=== PATIENT | female | born 1945 ===

== ENCOUNTER 2016-10-05 06:12 | Inpatient (IN) | payer MEDICARE, BC ==
--- NOTE | 2016-09-23 14:01 | HP ---
HISTORY AND PHYSICAL: DATE OF SURGERY/ADMISSION: 10/05/16 DATE OF OFFICE VISIT: 09/23/16 PROCEDURE: Left total knee replacement. CHIEF COMPLAINT: Left knee pain. HISTORY OF PRESENT ILLNESS: The patient is a very pleasant 71-year-old female who presents today for history and physical evaluation prior to undergoing her elected left total knee replacement. In brief, the patient has been suffering from left knee pain for several years and has tried conservative methods such as injections, bracing, modifying activities, but continues to have increasing pain. She elected to undergo a left total knee replacement by Dr. Campoverde on . PAST MEDICAL HISTORY: 1. Hypertension 2. Hypothyroidism. 3. Chronic kidney disease. 4. Anemia. 5. Hyperlipidemia. 6. Peripheral vascular disease, bilateral lower extremities. 7. Status post right femoral to popliteal bypass 2012. PAST SURGICAL HISTORY: 1. Right fem to popliteal bypass 2012. 2. Partial hysterectomy 1976. 3. Right foot surgery for osteoarthritis in 1991. MEDICATIONS: 1. Aspirin 81 mg p.o. daily. 2. Estradiol 0.05 mg/24 hours. 3. Levothyroxine 75 mcg 1 tablet by mouth daily. 4. Gabapentin 300 mg 1 tablet by mouth 3 times daily. 5. Hydrochlorothiazide 25 mg 1 tablet by mouth daily. 6. Coreg 12.5 mg 1 tablet by mouth twice daily. 7. Lipitor 10 mg 1 tablet by mouth q.h.s. ALLERGIES: LISINOPRIL. FAMILY MEDICAL HISTORY: Mother with dementia, passed from old age. Father with old age. Denies any heart trouble, diabetes or cancer. SOCIAL HISTORY: The patient is retired. Living with her in [place]. Denies any smoking history. Rare alcohol use. Exercises daily. REVIEW OF SYSTEMS: General: Denies fever, chills. No recent weight gain or loss. No difficulty with anesthesia. HEENT: Denies headaches, lightheadedness , or difficulty balance. Cardiovascular: Denies chest pain, palpitations or edema. Positive for hypertension. Pulmonary: Negative for shortness of breath , cough or asthma/COPD. GI: Negative for nausea, vomiting, constipation, diarrhea or GERD. : Negative for nocturia, urinary frequency, urgency. No history of UTIs or kidney problems. Musculoskeletal: Denies any other joint pains, other than left knee. Skin: No open wounds, sores or difficulty with wound healing. Neuro: Negative for paraesthesias and numbness. No history of seizures, stroke or epilepsy. Endocrine: Negative for diabetes. Positive for thyroid disease. Hematologic: Negative for easy bruising, anemia. Currently, the patient reports a positive history of DVT in the lower extremities. Infectious Disease: Negative for MRSA, hepatitis C or HIV. PHYSICAL EXAMINATION GENERAL: Well appearing, in no acute distress. Alert and oriented with appropriate mood and affect. Ambulating with cane. VITAL SIGNS: Height 60 inches, weight 127 pounds, pulse 57, blood pressure 184/ 69. Temperature 96.5, BMI 24.8. HEENT: Normocephalic, atraumatic. EOMI. CARDIO: Regular rate and rhythm. No murmurs, gallops or rubs. Normal S2 split. PULMONARY: Lungs clear to auscultation bilaterally. No crackles, rhonchi or wheezes. ABDOMEN: Soft, nontender, nondistended. Normal active bowel sounds. Negative CVA tenderness bilaterally. NEUROLOGIC: Alert and oriented x3. Cranial nerves grossly intact. Sensation intact to light touch in bilateral lower extremities. MUSCULOSKELETAL: Right knee with range of motion 3 to 110 degrees. No posterior tibial pulse palpated, +1 dorsalis pedis pulse. Left, 0 to 110 degrees. Knee mildly warm to palpation. Minimal joint effusion noted. Positive crepitus. +1 posterior tibial pulse. +1 dorsalis pedis pulse. IMAGING DATA: Studies left knee x-ray done at [facility] dated 08/25/16. IMPRESSION: This is a very pleasant 71-year-old female who presents today for history and physical examination. She is to undergo preoperative evaluation with Dr. Garrison in [place] next week. She will undergo her preadmission testing today. She would like to return home if at all possible postoperatively. Medications of oxycodone, Colace and Coumadin were sent to the patient's pharmacy in [place] in [place] for postoperative management with strict instructions not to take these prior to surgery, which the patient was in agreement with. She will follow up with Dr. Campoverde at [facility] approximately 3 to 4 weeks postoperatively. She had no other questions or concerns. ANGELA POSADA [id number]/[facility] #: [id number] MTDShira
[~2016-10-05 06:12] MED LIST: Buffered Lidocaine 0.9% SYRIN* 5 ML/SYR SYRINGE ONE; Famotidine IV* 10 MG/ML 2 ML (20 mg) IV ONE; Famotidine IV* 10 MG/ML 2 ML (20 mg) ONE; Gabapentin CAP(*) 300 MG ONE; Gabapentin CAP(*) 300 MG PO ONE; ceFAZolin 2 GM PREMIX(*) 2 GM/50 ML BAG IVPB ONE
[2016-10-05] MEDS: Buffered Lidocaine 0.9% SYRIN* 5 ML/SYR SYRINGE INTRADERM ONE ×2 (06:51→12:23)
[2016-10-05] MEDS ORDERED: Bupivacaine 0.25% W/EPI* 50 ML VIAL ONE (07:32)
[2016-10-05] MEDS ORDERED: fentaNYL* 50 MCG/ML 2 ML VIAL (100 MCG VIAL) ONE (07:35)
[2016-10-05] MEDS ORDERED: Midazolam* 1 MG/ML 5 ML VIAL (5 MG) ONE (07:36)
[2016-10-05] MEDS ORDERED: Morphine PF AMP (0.5MG/ML)* 5 MG/10 ML AMP ONE (07:36)
[2016-10-05] MEDS ORDERED: KETAMINE HCL* 50 MG/ML 10 ML VIAL ONE (07:59)
[2016-10-05] MEDS ORDERED: Dexamethasone IV* 4 MG/ML 1 ML (4 MG) ONE (08:05)
[2016-10-05] MEDS ORDERED: Ketorolac INJ* 30 MG/ML 1 ML VIAL ONE (08:05)
[2016-10-05] MEDS ORDERED: Ondansetron INJ* 2 MG/ML VIAL ONE (08:05)
[2016-10-05] MEDS ORDERED: Propofol* 10 MG/ML 20 ML BTL IV PUSH ONE (08:05)
[2016-10-05] MEDS ORDERED: oxyCODONE/Acetamin 5/325 MG* TAB PO PRN (08:49)
[2016-10-05] MEDS ORDERED: DiMENhydriNATE IV* 50 MG/ML VIAL IV PUSH PRN (08:49)
[2016-10-05] MEDS ORDERED: HYDROmorphone* 1 MG/ML 1 ML SYR IV PRN (08:49)
[2016-10-05] MEDS ORDERED: Gabapentin CAP(*) 100 MG PO ONE (08:51)
[2016-10-05] MEDS ORDERED: Nalbuphine* 20 MG/ML 1 ML VIAL IV PRN (08:52)
[2016-10-05] MEDS ORDERED: Ondansetron INJ* 2 MG/ML VIAL IV PRN (08:52)
[2016-10-05] MEDS ORDERED: Naloxone* 0.4 MG/ML 1 ML VIAL IV PRN (08:52)
[2016-10-05] MEDS ORDERED: oxyCODONE TAB* 5 MG TAB PO PRN ×3 (09:50→13:00)
[2016-10-05] MEDS ORDERED: Polyethylene Glycol 3350* 17 GM PACKET PO PRN (09:50)
[2016-10-05] MEDS ORDERED: Ondansetron TAB* 4 MG PO PRN (09:50)
[2016-10-05] MEDS ORDERED: Bisacodyl SUPP* 10 MG SUPP PR PRN (09:50)
[2016-10-05] MEDS ORDERED: diPHENhydraMINE IV* 50 MG/ML 1 ml VIAL (BENADRYL) IV PRN (09:50)
--- NOTE | 2016-10-05 10:35 | RAD ---
HISTORY: Status post left knee arthroplasty COMPARISONS: None VIEWS: 2, Frontal and lateral views of the left knee FINDINGS: BONE DENSITY: Normal. BONES: The patient is status post left knee arthroplasty. There is no hardware failure or osteolysis. JOINTS: The patient is status post left knee arthroplasty ALIGNMENT: There is no dislocation. SOFT TISSUES: There is postsurgical change to the soft tissue OTHER FINDINGS: None. IMPRESSION: STATUS POST LEFT KNEE ARTHROPLASTY
[2016-10-05] MEDS: Acetaminophen TAB* 325 MG PO SCH ×4 (11:31→21:53)
[2016-10-05] MEDS: D5W 1/2 NS 1000 ML BAG* 1,000 ML IV SCH ×2 (12:00→22:03)
[2016-10-05] MEDS: ceFAZolin VIAL(*) 1 GM in NS 0.9% 50 ML* 50 ML IVPB SCH ×2 (16:03→23:58)
[2016-10-05] MEDS ORDERED: Warfarin TAB(*) 4 MG PO ONE ×2 (17:00→21:00)
[2016-10-05] MEDS: Atorvastatin* 10 MG TAB PO SCH (21:54)
[2016-10-05] MEDS: Docusate CAP* 100 MG PO SCH (21:55)
[2016-10-05] MEDS: Magnesium Hydroxide LIQ* 30 ML UDC PO SCH (22:05)
[2016-10-05] MEDS: Gabapentin CAP(*) 300 MG PO SCH (22:06)
[2016-10-05] MEDS: Carvedilol TAB* 6.25 MG PO SCH (22:07)
[2016-10-06] MEDS: Acetaminophen TAB* 325 MG PO SCH ×2 (01:26→05:54)
--- NOTE | 2016-10-06 02:25 | OP ---
DATE OF OPERATION: 10/05/16 - ROOM #448 DATE OF : 41 SURGEON: Sandeep Campoverde MD TERRITORY SALES MANAGER: Kathy Kearns RPA ANESTHESIOLOGIST: Madison Brewer MD ANESTHESIA: Spinal and sedation. PRE-OP DIAGNOSIS: Osteoarthritis, left knee. POST-OP DIAGNOSIS: Osteoarthritis, left knee. OPERATIVE PROCEDURE: Left total knee arthroplasty. ESTIMATED BLOOD LOSS: Less than 20 cc. COMPLICATIONS: None. HARDWARE: Ilda Persona knee #5 femur, D tibial base plate, 11-mm polyethylene , 32 mm all polyethylene patellar button. SUMMARY: Ms. Lacy is a 71-year-old female who has been having continued troubles with left knee pain. She is [id number] on both medial and patellofemoral compartments and I discussed with her that a total knee arthroplasty should work well to decrease her pain and improve her function. Risks of surgery such as infection, scar formation, stiffness, DVT, pulmonary embolism, hardware failure, and continued pain were some of the risks discussed she did wish to proceed. She had been declared medically optimized prior to surgery. DESCRIPTION OF PROCEDURE: The patient was brought to the OR and spinal anesthesia was introduced. Barbour catheter was placed. Tourniquet was placed and used during the case. Total tourniquet time would be 50 minutes. Left knee was prepped and then draped. Kathy Kearns RPA, was present for the entirety of the case and was instrumental with positioning, retraction, placement of the components and closure. The case could not have been done with her. Left knee was prepped and then draped. Esmarch was used to exsanguinate the leg and the tourniquet was raised. Midline incision was made, centered about the patella, beginning just on the medial side of the tibial tubercle and carried upwards. Incision was carried down through the skin and subcutaneous tissues. Extensor mechanism was exposed and a sharp parapatellar arthrotomy was made. Soft tissues were sharply elevated from the medial side of the tibia and the fat pad was sharply excised. Patella measured 18 mm in thickness but some of this was due to wear and a nice cut was taken. This left 11 mm of patella with a nice smooth even surface. Attention was turned to the femur. Step drill was used to open the femoral canal. Intramedullary guide was placed. This was adjusted until it was perfectly parallel with the epicondyles and then the distal femoral cutting guide was pinned into place. Intramedullary guide was removed. Distal femoral cut was taken. Guide had been set at 5 degrees and 2 mm. It appeared a nice cut was obtained. Femur was sized and she sat just below 5. I thought though that the 5 would sit better and holes were drilled and a 5 block was placed. Superior drill hole was run and this came out nicely on the top side of the femur. Anterior and posterior femoral cuts followed by the chamfer cuts were all made. Attention was turned to the tibia. Step drill was used to open the tibial canal and the intramedullary guide was placed. Outrigger was assembled and adjusted until it appeared it would take 2 mm from the worn medial side. Cutting guide was pinned into place and the tibial cut was taken. Nice cut was obtained. A 10 spacer block was placed and she was just a little bit loose but her alignment appeared perfect. Proximal tibia was sized and a C appeared a little bit small and the D sat right to the edge. I thought the D would be better. D was then pinned into place and the proximal tibia was drilled and then punched. A #5 femur was placed on the femur and the box cut was finished. She was trialed with an 11 and came out nicely into full extension being perhaps a little bit tight and flexed easily past 135 degrees. Locked in full extension, she was stable with a little bit of flexion. She had a little bit of wobble but was not unstable. Patella tracking without the button was fine. Patella was sized and a 32 sat very nicely. Holes were drilled and trial was snapped into place. Patella tracked perfectly. Trial instrumentation was removed. The knee was copiously pulse lavaged. Cement was being prepared. Tibia followed by femur and patella were all cemented into place. Excess cement was removed and the cement was allowed to harden. She was again trialed with the 11 and had seemed to tighten up a little bit. An 11 polyethylene was called for and the knee was again searched for any loose pieces of cement. Knee was again copiously pulse lavaged and the polyethylene was then snapped into place. Knee was again copiously pulse lavaged and parapatellar arthrotomy was repaired using interrupted #1 Vicryl sutures. Tourniquet was let down and no significant bleeding was encountered. Knee was again pulse lavaged and the subcutaneous tissues reapproximated using 2-0 Vicryl. Skin was closed using scout. Sterile dressing was applied. The patient was then awakened, stable on transfer to the recovery room. [id number]/[facility] #: [id number] MTDShira
[2016-10-06 04:57] LABS: Hematocrit 27 % (35-47); Hemoglobin 9.2 g/dl (12.0-16.0)
[2016-10-06 05:13] LABS: BUN/Creatinine Ratio 24.6 (8-20); Calcium 8.6 mg/dL (8.6-10.3); EGFR African American 57.7 (>60); EGFR Non-African American 44.9 (>60); Potassium 4.2 mmol/L (3.5-5.0)
[2016-10-06] MEDS: Levothyroxine TAB* 75 MCG TAB PO SCH (05:55)
[2016-10-06] MEDS: oxyCODONE/Acetamin 5/325 MG* TAB PO PRN ×2 (05:55→15:58)
[2016-10-06] MEDS: ceFAZolin VIAL(*) 1 GM in NS 0.9% 50 ML* 50 ML IVPB SCH (07:22)
[2016-10-06] MEDS: Carvedilol TAB* 6.25 MG PO SCH ×2 (08:51→21:50)
[2016-10-06] MEDS: Docusate CAP* 100 MG PO SCH ×2 (08:57→21:45)
[2016-10-06] MEDS: Vitamin THERAPEUTIC TAB PO SCH (08:57)
[2016-10-06] MEDS: Ferrous Sulfate TAB* 325 MG PO SCH (08:57)
[2016-10-06] MEDS: Magnesium Hydroxide LIQ* 30 ML UDC PO SCH ×2 (08:57→21:46)
[2016-10-06] MEDS: Heparin VIAL(*) 5000 UNITS/ML VIAL (FIVE THOUSAND) SUBCUT SCH ×2 (08:59→17:17)
--- NOTE | 2016-10-06 09:12 | PN ---
Progress Note - Progress Note Date of Service: 10/06/16 SOAP: Subjective: Pt is doing well. Pain is controlled. Denies CP, SOB, lightheadedness, F/C or calf pain. She was able to do stairs with a cane with PT. Objective: 71 y/o F NAD, A&O x3 LLE- dressing c/d/i, +DF/PF< calf soft nontender, +2 DP pulse, SILT Vital Signs Temp Pulse Resp BP Pulse Ox 97.5 F 52 16 136/42 100 10/06/16 07:40 10/06/16 07:40 10/06/16 07:55 10/06/16 07:40 10/06/16 07:40 Laboratory Results - last 24 hr 10/06/16 10/06/16 10/06/16 04:36 04:36 04:36 Hgb 9.2 L Hct 27 L INR (Anticoag Therapy) 0.94 Sodium 129 L Potassium 4.2 Chloride 101 Carbon Dioxide 26 Anion Gap 2 BUN 29 H Creatinine 1.18 H Est GFR ( Amer) 57.7 Est GFR (Non-Af Amer) 44.9 BUN/Creatinine Ratio 24.6 H Glucose 145 H Calcium 8.6 Assessment: POD Left TKA Plan: WBAT LLE- cont PT/OT 8 mg coumadin toninge solitario cont pain control probable discharge tomorrow or
[2016-10-06] MEDS: Acetaminophen TAB* 325 MG PO PRN ×2 (10:18→21:45)
[2016-10-06] MEDS: Ondansetron INJ* 2 MG/ML VIAL IV PRN (15:01)
--- NOTE | 2016-10-06 15:17 | PN ---
Hospitalist Progress Note Responded to CAT overhead page. S: On arrival patient was laying in chair, awake and alert. Patient had been doing well today, worked with PT in the AM and just prior to this event she ambulated to the bathroom with no issue. She began to urinate and subsequently felt very warm, light-headed and nauseous. She syncopized but did not fall and did not strike her head as nursing was present. She was unresponsive for a short time and was carried back to her chair. She denies any preceding chest pain, SOB, palpitations. While recovering in the chair she had a few episodes of emesis. Said she had some N/V yesterday after surgery but today had breakfast and lunch with no issues. Did not have pain medications for a few hours prior to this. O: VSS, EKG done shows NSR, no ischemic changes, no arrhythmias Pleasant elderly F, laying in chair in NAD CV: RRR, s1 and s2 present, no m/g/r Chest: CTA B/L, no w/r/r Abd: Soft, NTND, BS+ Ext: L knee with dressing in place, c/d/i, mild LLE edema A/P Vasovagal syncope in a 71 yo F s/p L TKA on 10/05 Symptoms strongly suggest vasovagal etiology, EKG unremarkable, do not think she needs any additional monitoring or change in LOC at this time Will resume IVF for the night which were stopped this morning Would continue current treatment as you are. H/H, BMP ordered for the morning. Zofran prn for nausea Please feel free to contact me with any further concerns.
[2016-10-06] MEDS: D5W 1/2 NS 1000 ML BAG* 1,000 ML IV SCH (15:26)
[2016-10-06] MEDS ORDERED: Warfarin TAB(*) 4 MG PO ONE (17:00)
--- NOTE | 2016-10-06 19:53 | PN ---
Hospitalist Progress Note Responded to CAT overhead page. S: CAT alert paged overhead. Arrived to find patient sitting on toilet, awake but with slowed mentation. Patient reportedly had previous vasovagal episode 4 hours ago with similar presentation. Patient reportedly had urinated and attempted to stand up from the toilet, became pale and was assisted back down onto toilet. She was unresponsive for a short time but then awoke. She is now alert and looking around and able to answer questions appropriately. Denies any chest pain, SOB or other symptoms. Reports prodrome of warmth and light- headedness. Thinks she may have had pain medication around dinner time. States she did well earlier with PT and moving around and does not understand these episodes. O: Initially with 88/50 BP that came up to 130/55 5 minutes later. EKG shows sinus bradycardia with mild ST elevation in inferior leads. Elderly female, laying in bed, NAD CV: RRR, S1, S2, no murmurs, rubs, or gallops Resp: Lungs CTA, no adventitious lung sounds Abd: soft, non tender, nondistended, BS x 4 Extremities: Left knee dressing c/d/i, mild LLE edema, distally nvi A/P: 2nd episode of vasovagal syncope s/p L TKA on 10/[address] elevation in inferior leads, suspect demand ischemia from syncope, check troponin. Recheck EKG in 3 hours. Transfer to telemetry for further monitoring overnight Continue IVF HH, BMP in AM (no suspicion or s/s bleeding at this time) Carefully monitor patient following pain medication administration, ? if this predisposes patient to syncopal episodes
[2016-10-06 20:38] LABS: Hematocrit 25 % (35-47); Hemoglobin 8.5 g/dl (12.0-16.0)
[2016-10-06 20:54] LABS: BUN/Creatinine Ratio 19.7 (8-20); Calcium 8.6 mg/dL (8.6-10.3); EGFR Non-African American 41.2 (>60); Potassium 4.3 mmol/L (3.5-5.0)
[2016-10-06] MEDS: Atorvastatin* 10 MG TAB PO SCH (21:44)
[2016-10-06] MEDS: Gabapentin CAP(*) 300 MG PO SCH (21:44)
[2016-10-07] MEDS: traMADol TAB* 50 MG PO PRN ×3 (00:05→20:20)
[2016-10-07] MEDS: Morphine INJ* 10 MG/ML 1 ML SYRINGE IV PRN ×2 (01:50→03:53)
[2016-10-07] MEDS: Ondansetron INJ* 2 MG/ML VIAL IV PRN (01:50)
[2016-10-07] MEDS: Heparin VIAL(*) 5000 UNITS/ML VIAL (FIVE THOUSAND) SUBCUT SCH ×3 (01:51→17:56)
[2016-10-07] MEDS: D5W 1/2 NS 1000 ML BAG* 1,000 ML IV SCH ×2 (03:53→21:07)
[2016-10-07] MEDS: Acetaminophen TAB* 325 MG PO PRN ×3 (05:57→20:20)
[2016-10-07] MEDS: Levothyroxine TAB* 75 MCG TAB PO SCH (05:57)
[2016-10-07 06:27] LABS: Hematocrit 25 % (35-47); Hemoglobin 8.6 g/dl (12.0-16.0)
[2016-10-07 06:36] LABS: Potassium 3.8 mmol/L (3.5-5.0)
[2016-10-07 08:55] LABS: BUN/Creatinine Ratio 16.9 (8-20); Calcium 8.4 mg/dL (8.6-10.3); EGFR African American 57.7 (>60); EGFR Non-African American 44.9 (>60)
[2016-10-07] MEDS: Carvedilol TAB* 6.25 MG PO SCH ×2 (09:34→20:56)
[2016-10-07] MEDS: Vitamin THERAPEUTIC TAB PO SCH (09:46)
[2016-10-07] MEDS: Ferrous Sulfate TAB* 325 MG PO SCH (09:46)
[2016-10-07] MEDS: Docusate CAP* 100 MG PO SCH ×2 (09:47→20:21)
[2016-10-07] MEDS: Magnesium Hydroxide LIQ* 30 ML UDC PO SCH ×3 (09:47→20:26)
--- NOTE | 2016-10-07 11:01 | PN ---
Progress Note - Progress Note Date of Service: 10/07/16 SOAP: Subjective: []Patient seen at bedside. Feels better today after having 2 syncopal episodes yesterday. She was then transferred to telemetry for closer observation. EKG with non specific findings other than bradycardia. She reports family history and sensitivity to narcotic pain medications which have been discontinued. She has not yet been up today as therapy is just being re instated. Objective: [] Vital Signs Temp 98.3 F 10/07/16 07:29 Pulse 71 10/07/16 07:29 Resp 18 10/07/16 08:40 BP 170/55 10/07/16 07:29 Pulse Ox 99 10/07/16 08:15 Intake & Output 10/06/16 10/07/16 10/07/16 18:59 06:59 18:59 Intake Total 1856 1241 230 Output Total 825 600 100 Balance 1031 641 130 Intake: IV Fluids 981 1241 ABX - CEFAZOLIN 981 D5W 1/2 NS 1241 IVPB 115 ABX - CEFAZOLIN 115 Oral 760 0 230 Output: Urine 300 600 100 Barbour 225 Emesis 300 Other: # Bowel Movements 0 Laboratory Results - last 24 hr 10/06/16 10/06/16 10/06/16 19:27 20:33 20:33 Hgb 8.5 L Hct 25 L INR (Anticoag Therapy) Sodium 130 L Potassium 4.3 Chloride 95 L Carbon Dioxide 30 Anion Gap 5 BUN 25 H Creatinine 1.27 H Est GFR ( Amer) 53.0 Est GFR (Non-Af Amer) 41.2 BUN/Creatinine Ratio 19.7 Glucose 123 H POC Glucose (mg/dL) 155 H Hemoglobin A1c Calcium 8.6 Troponin I 0.00 10/06/16 10/07/16 10/07/16 23:20 01:58 06:16 Hgb 8.6 L Hct 25 L INR (Anticoag Therapy) Sodium Potassium Chloride Carbon Dioxide Anion Gap BUN Creatinine Est GFR ( Amer) Est GFR (Non-Af Amer) BUN/Creatinine Ratio Glucose POC Glucose (mg/dL) Hemoglobin A1c Calcium Troponin I 0.00 0.01 10/07/16 10/07/16 10/07/16 06:16 06:16 06:17 Hgb Hct INR (Anticoag Therapy) 1.74 H Sodium 125 L Potassium 3.8 Chloride 93 L Carbon Dioxide 29 Anion Gap 3 BUN 20 Creatinine 1.18 H Est GFR ( Amer) 57.7 Est GFR (Non-Af Amer) 44.9 BUN/Creatinine Ratio 16.9 Glucose 134 H POC Glucose (mg/dL) Hemoglobin A1c 6.0 H Calcium 8.4 L Troponin I Left knee dressings removed. Her incision looks benign without drainage or erythema. mild edema. Calf non tender and soft. + DF/PF left ankle New 4x4s and nick wrap applied to incision. Assessment: []s/p LTK POD #2 syncope X2, likely due to narcotic pain medications Plan: []Narcotics discontinued with Tylenol and tramadol for pain Re order PT/OT WBAT If symptoms persist despite narcotic cessation, will consider transfusing 1 unit PRBC.
[2016-10-07] MEDS ORDERED: Warfarin TAB(*) 4 MG PO ONE (17:00)
[2016-10-07] MEDS: Atorvastatin* 10 MG TAB PO SCH (20:22)
[2016-10-07] MEDS: Gabapentin CAP(*) 300 MG PO SCH (20:22)
[2016-10-07] MEDS ORDERED: oxyCODONE/Acetamin 5/325 MG* TAB PO PRN (21:38)
[2016-10-07] MEDS ORDERED: oxyCODONE TAB* 5 MG TAB PO PRN (21:38)
[2016-10-07] MEDS ORDERED: Morphine INJ* 10 MG/ML 1 ML SYRINGE IV PRN (21:38)
[2016-10-08] MEDS: traMADol TAB* 50 MG PO PRN ×3 (01:12→14:07)
[2016-10-08] MEDS: Acetaminophen TAB* 325 MG PO PRN (01:14)
[2016-10-08] MEDS: Heparin VIAL(*) 5000 UNITS/ML VIAL (FIVE THOUSAND) SUBCUT SCH (02:14)
[2016-10-08] MEDS: Levothyroxine TAB* 75 MCG TAB PO SCH (05:29)
[2016-10-08 06:16] LABS: Hematocrit 26 % (35-47); Hemoglobin 8.7 g/dl (12.0-16.0)
[2016-10-08] MEDS: D5W 1/2 NS 1000 ML BAG* 1,000 ML IV SCH (07:32)
[2016-10-08] MEDS: Carvedilol TAB* 6.25 MG PO SCH (08:10)
[2016-10-08] MEDS: Ferrous Sulfate TAB* 325 MG PO SCH (08:55)
[2016-10-08] MEDS: Vitamin THERAPEUTIC TAB PO SCH (08:55)
[2016-10-08] MEDS: Docusate CAP* 100 MG PO SCH (08:56)
[2016-10-08] MEDS: Magnesium Hydroxide LIQ* 30 ML UDC PO SCH (09:11)
--- NOTE | 2016-10-08 09:36 | PN ---
Progress Note - Progress Note Date of Service: 10/08/16 SOAP: Subjective: []Patient seen at bedside. She states she feels better after receiving 1 unit of blood yesterday. She denies further syncopal episodes, denies CP, SOB. Left knee pain is well managed on non narcotic pain medications. Objective: [] Vital Signs Temp 99.2 F 10/08/16 07:19 Pulse 57 10/08/16 07:19 Resp 16 10/08/16 07:40 BP 166/53 10/08/16 07:19 Pulse Ox 96 10/08/16 07:19 Intake & Output 10/07/16 10/08/16 10/08/16 18:59 06:59 18:59 Intake Total 1089 998 420 Output Total 800 1000 Balance 289 -2 420 Intake: IV Fluids 639 998 80 D5W 1/2 NS 639 998 80 Oral 450 0 340 Output: Urine 800 1000 Other: # Bowel Movements 1 Estimated Stool Amount Large Laboratory Results - last 24 hr 10/07/16 10/07/16 10/08/16 06:16 06:17 05:52 Hgb 8.7 L Hct 26 L INR (Anticoag Therapy) Hemoglobin A1c 6.0 H Blood Type A Positive Antibody Screen Negative Crossmatch See Detail 10/08/16 05:52 Hgb Hct INR (Anticoag Therapy) 3.09 H Hemoglobin A1c Blood Type Antibody Screen Crossmatch Left knee dressings dry and intact calf non tender and soft +DF/PF left ankle neuro intact Assessment: []s/p Left total knee arthroplasty POD #3 post op syncope- vasovagal/ likely narcotic related Plan: []d/c IVF Medicine consulted, medically stable for discharge home later today? Hold Coumadin today
[2016-10-08] MEDS ORDERED: Magnesium Hydroxide LIQ* 30 ML UDC PO PRN (09:42)
--- NOTE | 2016-10-08 11:16 | CONSULT ---
Subjective Date of Service: 10/08/16 Interval History: Patient seen and examined at bedside. She reports hx of left knee pain that has failed outpatient treatment. Following her surgery, the patient has had a few syncopal episodes, which she only vaguely remembers. She attributes this primarily to the morphine and oxycodone and denies any further dizziness or vasovagal syncope following the discontinuation of these medications. She feels better after receiving 1 unit of blood. In regards to her anemia, patient states she has chronic anemia and follows up with her PCP for this. She currently denies any chest pain, dyspnea, dizziness, weakness, abd pain, n/v/d, bloody stools. She reports doing well with PT. Her pain has been adequately controlled with tramadol and acetaminophen. In regards to her HTN, patient states she measures her BP at home daily and it is usually normal. She notes "it's always higher in the hospital and at my doctor's office." She checks her BP before taking her antihypertensives. Family History: Unchanged from Admission Social History: Unchanged from Admission Past Medical History: Unchanged from Admission Review of Systems - Measurements Intake and Output: Intake and Output Last 24 Hours 10/06/16 10/07/16 10/08/16 10/09/16 06:59 06:59 06:59 06:59 Intake Total 3670 3097 2087 420 Output Total 2545 1425 1800 Balance 1125 1672 287 420 Intake: IV Fluids 2480 2222 1637 80 ABX - CEFAZOLIN 55 981 D5W 1/2 NS 975 1241 1637 80 LR 1400 NS 50ML, Cefazolin 2G 50 IVPB 115 ABX - CEFAZOLIN 115 Oral 1190 760 450 340 Output: Urine 900 1800 [place] 1725 225 Emesis 800 300 Estimated Blood Loss 20 Other: # Bowel Movements 0 0 1 Estimated Stool Amount Large - Review of Systems Constitutional Symptoms: Negative: Weakness, Fatigue, Fever Eyes: Negative: Change in Vision, Double Vision, Eye Pain Pulmonary: Negative: Cough, Wheezing, Respiratory Distress, Shortness of Breath Cardiology: Positive: Syncope - 2 episodes on 10/06/16 Negative: Chest Pain, Shortness of Breath, Palpitations, Claudication Gastroenterology: Negative: Abdominal Pain, Nausea, Vomiting, Diarrhea, Blood in Stools Genital - Urinary: Negative: Dysuria Musculoskeletal: Positive: Joint Pain - left knee pain Hematologic/Lymphatic: Positive: Anemia Neurology: Negative: Change in Vision, Diplopia, Dizziness Objective Active Medications: Acetaminophen (Tylenol Tab*) 650 mg PO Q4H PRN PRN Reason: pain, fever Last Admin: 10/08/16 01:14 Dose: 650 mg Atorvastatin Calcium (Lipitor*) 10 mg PO BEDTIME [facility] Last Admin: 10/07/16 20:22 Dose: 10 mg Bisacodyl (Dulcolax Supp*) 10 mg MS DAILY PRN PRN Reason: constipation Carvedilol (Coreg Tab*) 12.5 mg PO BID [facility] Last Admin: 10/08/16 08:10 Dose: Not Given Diphenhydramine HCl (Benadryl Iv*) 12.5 mg IV Q6H PRN PRN Reason: PRURITIS Docusate Sodium (Colace Cap*) 100 mg PO BID [facility] Last Admin: 10/08/16 08:56 Dose: 100 mg Ferrous Sulfate (Ferrous Sulfate Tab*) 325 mg PO DAILY [facility] Last Admin: 10/08/16 08:55 Dose: 325 mg Gabapentin (Neurontin Cap(*)) 300 mg PO BEDTIME [facility] Last Admin: 10/07/16 20:22 Dose: 300 mg Dextrose/Sodium Chloride (D5w 1/2 Ns 1000 Ml Bag*) 1,000 mls @ 100 mls/hr IV PER RATE [facility] Last Admin: 10/08/16 07:32 Dose: 100 mls/hr Lactulose (Lactulose*) 30 ml PO Q6H PRN PRN Reason: constipation Levothyroxine Sodium (Synthroid Tab*) 75 mcg PO 0600 [facility] Last Admin: 10/08/16 05:29 Dose: 75 mcg Magnesium Hydroxide (Milk Of Magnesia Liq*) 30 ml PO BID PRN PRN Reason: . Multivitamins (Theragran Tab*) 1 tab PO DAILY [facility] Last Admin: 10/08/16 08:55 Dose: 1 tab Ondansetron HCl (Zofran Inj*) 4 mg IV Q6H PRN PRN Reason: nausea Last Admin: 10/07/16 01:50 Dose: 4 mg Ondansetron HCl (Zofran Tab*) 4 mg PO Q6H PRN PRN Reason: NAUSEA Polyethylene Glycol/Electrolytes (Miralax*) 17 gm PO DAILY PRN PRN Reason: Constipation Tramadol HCl (Ultram*) 50 mg PO Q4H PRN PRN Reason: PAIN - MILD TO MODERATE Last Admin: 10/08/16 10:12 Dose: 50 mg Vital Signs 10/07/16 10/07/16 10/07/16 11:33 11:36 11:42 Temperature 97.8 F Pulse Rate 59 Respiratory 18 20 Rate Blood Pressure 150/48 (mmHg) O2 Sat by Pulse 98 Oximetry 10/07/16 10/07/16 10/07/16 13:16 13:33 13:45 Temperature 98.4 F 98.1 F Pulse Rate 63 66 Respiratory 17 16 16 Rate Blood Pressure 136/38 148/51 (mmHg) O2 Sat by Pulse 100 99 Oximetry 10/07/16 10/07/16 10/07/16 15:29 19:37 20:00 Temperature 97.2 F 98.2 F Pulse Rate 57 68 Respiratory 14 18 18 Rate Blood Pressure 143/47 149/47 (mmHg) O2 Sat by Pulse 97 100 Oximetry 10/07/16 10/07/16 10/07/16 20:20 20:22 22:22 Temperature Pulse Rate Respiratory 17 17 16 Rate Blood Pressure (mmHg) O2 Sat by Pulse Oximetry 10/07/16 10/08/16 10/08/16 23:49 00:24 00:49 Temperature 98.6 F Pulse Rate 69 Respiratory 20 Rate Blood Pressure 92/63 142/70 (mmHg) O2 Sat by Pulse 99 99 Oximetry 10/08/16 10/08/16 10/08/16 01:12 03:12 03:50 Temperature 98.3 F Pulse Rate 63 Respiratory 16 16 18 Rate Blood Pressure 153/51 (mmHg) O2 Sat by Pulse 99 Oximetry 10/08/16 10/08/16 10/08/16 07:19 07:40 10:12 Temperature 99.2 F Pulse Rate 57 Respiratory 16 16 16 Rate Blood Pressure 166/53 (mmHg) O2 Sat by Pulse 96 Oximetry Oxygen Devices in Use Now: None Appearance: Older female, lying in bed, NAD Eyes: PERRLA Ears/Nose/Mouth/Throat: Clear Oropharnyx, Mucous Membranes Moist Neck: NL Appearance and Movements; NL JVP Respiratory: Symmetrical Chest Expansion and Respiratory Effort, Clear to Auscultation Cardiovascular: NL Sounds; No Murmurs; No JVD, RRR Abdominal: NL Sounds; No Tenderness; No Distention Extremities: - - L knee incision - well approximated, scout intact, surrounding ecchymosis, distally nvi, 1+ pitting edema to left calf - non erythmatous, non tender Neurological: Alert and Oriented x 3, NL Muscle Strength and Tone Lines/Tubes/Other Access: Clean, Dry and Intact Peripheral IV Nutrition: Taking PO's Result Diagrams: 10/08/16 05:52 10/07/16 06:16 Assessment/Plan - Billing Plan By Medical Problem: Ms. Lacy is a 71 yo female with a PMH of HTN, hypothyroidism, CKD, anemia , HLD, and PVD who was admitted on 10/05/16 for an elective left total knee replacement 1. Left total knee replacement - POD #3, management per ortho 2. Vasovagal syncope - suspect secondary to opioids and volume depletion. Family endorses history of narcotic sensitivity and other family members who have had syncopal episodes with narcotic use. Patient had 2 episodes on 10/06/16 with CAT response. There is also a documented incident overnight of transient confusion and another near syncopal episode. Patient has had Percocet discontinued and has been doing well on acetaminophen and tramadol. No arrythmias noted on telemetry, patient has been in sinus rhythm with occasional PVCs. 3. HTN - Normotensive to mildly hypertensive, which is okay post-operatively, given patient's previous syncopal episodes. There is likely also a pain component to elevated BP. Patient has home BP cuff and was instructed to continue monitoring at home prior to taking home antihypertensives. Continue home Coreg and HCTZ; outpatient follow-up with PCP. 4. Hypothyroidism - Continue levothyroxine. 5. Anemia - Patient with acute blood loss anemia following knee surgery but is hemodynamically stable. Continue outpatient follow-up with PCP, recommend CBC next week. 6. HLD - Continue atorvastatin. 7. PVD - Continue outpatient follow-up with vascular surgeon. Reports that she had a yearly ultrasound and vascular flow is improved. Continue atorvastatin and resume ASA when OK with ortho. VTE PPX: Per ortho Diet: Heart healthy diet Code Status: Full code Admission Status and Rationale: Inpatient admission. Disposition per ortho. Counseling and/or Coordination of Care Minutes: 45
[2016-10-08 12:33] VITALS: BP 181/53
--- NOTE | 2016-10-09 00:46 | DS ---
DISCHARGE SUMMARY: DATE OF ADMISSION: 10/05/16 DATE OF DISCHARGE: 10/08/16 CHIEF COMPLAINT: 1. Left knee pain. 2. Hypertension. 3. Hypothyroidism. 4. Chronic kidney disease. 5. Anemia. 6. Hyperlipidemia. 7. Peripheral vascular disease, bilateral lower extremities. 8. Status post fem to popliteal bypass, 2012. DISCHARGE DIAGNOSES: 1. Left total knee replacement, uncomplicated. 2. Hypertension. 3. Hypothyroidism. 4. Chronic kidney disease. 5. Anemia. 6. Hyperlipidemia. 7. Peripheral vascular disease. 8. Status post right fem to popliteal bypass, 2013. PROCEDURE: Left total knee arthroplasty. CONSULTATIONS: 1. Physical Therapy. 2. Occupational Therapy. 3. Medicine. BRIEF HISTORY: Ms. Lacy is a 71-year-old female with severe end-stage degenerative osteoarthritis of the left knee who failed conservative treatment and elected to undergo a left total knee arthroplasty on 10/05/[address] Campoverde. HOSPITAL COURSE: Ms. Lacy was admitted to [facility] on , where she underwent a left total knee arthroplasty. Postoperatively, she recovered on the surgical short stay unit. On 10/06/16, the patient had a syncopal episode with emesis. She underwent 1 unit of packed red blood cells transfusion as was as changing of her narcotic medication to tramadol, as well as was transferred to a telemetry unit for cardiac monitoring. She had no further episodes and her vital signs have remained stable for the rest of her stay. She advanced to regular diet without difficulty and her pain was controlled with p.o. tramadol. She was restarted on her home medications. Her labs and vitals signs remained stable after her syncopal episode, she is able to weightbear as tolerated on the left lower extremity and was working well with physical therapy. Her DVT prophylaxis was managed with heparin and Coumadin until she reached a therapeutic INR. By postoperative #3, she is orthopedically and medically stable for discharge. She will go home with home services. PHYSICAL EXAMINATION: General: The patient is alert and oriented, in no acute distress, resting comfortably in bed. Vital Signs: Temperature 98.5, heart rate 65, respirations 12, oxygen saturation 97% on room air, blood pressure 191/ 53. Examination of the left lower extremity demonstrates the surgical dressing intact with no sign of drainage or visible signs of infection. Active dorsiflexion and plantarflexion bilaterally. +2 palpable dorsalis pedis pulse. Sensation to light touch intact. LABORATORY DATA: H and H of 8.7 and 26, and an INR of 3.09. IMAGING: Radiographs: Postoperative films demonstrate a left knee arthroplasty in good positioning. DISCHARGE MEDICATIONS: 1. Tylenol 650 mg p.o. q.4 hours. 2. Atorvastatin 10 mg p.o. q.h.s. 3. Coreg 12.5 mg p.o. b.i.d. 4. Colace 100 mg p.o. b.i.d. 5. Ferrous sulfate 325 mg p.o. daily. 6. Gabapentin 300 mg p.o. q.h.s. 7. Levothyroxine 75 mcg p.o. daily. 8. Tramadol 50 mg 1 to 2 tablets as needed every 4 to 6 hours for pain. 9. Aspirin 81 mg p.o. q.h.s. 10. Estradiol gel 0.5 mg t.i.d. daily. 11. Hydrochlorothiazide 25 mg 1 tablet p.o. daily. 12. Coumadin 2 mg p.o. daily at 5 p.m. per physician's orders. CONDITION ON DISCHARGE: Stable. DISCHARGE INSTRUCTIONS: Ms. Lacy is a very pleasant 71-year-old female, postoperative day #3, status post left total knee arthroplasty which was uncomplicated. She is orthopedically and medically stable for discharge to go home with home services. Her labs and vital signs are stable. She will restart her home medications. She will hold her Coumadin until 10/10/16 and take 2 mg on 10/10/16 and another 2 on 10/11/16 with an INR check on 10/12/16. She will remain weightbearing as tolerated on the left lower extremity and have home physical therapy twice a week. She will take tramadol as needed for pain control and Colace up to 3 times a day for constipation. She will follow up with Dr. Campoverde in approximately 3 to 4 weeks for incision check. She will have her sutures removed by visiting home nurse services. She was instructed to go immediately to the ER should she develop chest pain or shortness of breath. If she develops fever, increasing pain, or redness, she is to call the office immediately. ANGELA POSADA [id number]/[facility] #: [id number] JES
== END 2016-10-08 15:10 | disposition home health service (06) | DRG 470 ==
LOC: AA 06:12 → SSU 11:39 → MEDTELE 10-06 19:35
PROVIDERS: ADMIT Orthopaedic Surgery; ATTEND Orthopaedic Surgery
PROC: 0SRD0J9 Replacement of Left Knee Joint with Synthetic Substitute, Cemented, Open Approach (ICD-10-PCS; principal; 2016-10-05 07:30)
PROC: 30233N1 Transfusion of Nonautologous Red Blood Cells into Peripheral Vein, Percutaneous Approach (ICD-10-PCS; 2016-10-07)
DX: M17.12 Unilateral primary osteoarthritis, left knee (principal); R00.1 Bradycardia, unspecified; D62 Acute posthemorrhagic anemia; E03.9 Hypothyroidism, unspecified; I12.9 Hypertensive chronic kidney disease with stage 1 through stage 4 chronic kidney disease, or unspecified chronic kidney disease; N18.9 Chronic kidney disease, unspecified; E78.5 Hyperlipidemia, unspecified; I73.9 Peripheral vascular disease, unspecified; Z90.710 Acquired absence of both cervix and uterus; Z88.8 Allergy status to other drugs, medicaments and biological substances; Z79.01 Long term (current) use of anticoagulants; Z79.82 Long term (current) use of aspirin; Z81.8 Family history of other mental and behavioral disorders; R11.0 Nausea; R42 Dizziness and giddiness; R55 Syncope and collapse; R41.0 Disorientation, unspecified; T40.4X5A Adverse effect of other synthetic narcotics, initial encounter
CPT/HCPCS: 36415; 80048; 83036; 84484; 85014; 85018; 85610; 86850; 86900; 86901; 86922; 88305; 88311; 93005; 94760; A9270-GY; C1776; J0690; J1100; J1644; J1885; J2250; J2270; J2405; J2704; J3010; P9040

== ENCOUNTER 2016-10-23 09:03 | Observation (INO) | payer MEDICARE, BC ==
[2016-10-23] MEDS ORDERED: Ondansetron INJ* 2 MG/ML VIAL IV ONE (09:32)
[2016-10-23] MEDS ORDERED: NS 0.9% 1000 ML* 1,000 ML IV ONE (09:32)
--- NOTE | 2016-10-23 10:20 | RAD ---
Indication: Abdominal pain. Flat and upright views of the abdomen demonstrates no free air. No dilated loops of bowel are noted. The colon is filled with stool. Air-fluid level is noted in the stomach. IMPRESSION: No free air or obstruction is noted.
[2016-10-23 10:25] LABS: Hematocrit 28 % (35-47); Mean Corpuscular HGB Conc 35 g/dl (31-36); Mean Corpuscular Hemoglobin 32 pg (27-31); Mean Corpuscular Volume 91 fL (80-97); Mean Platelet Volume 7 um3 (7.4-10.4); Red Blood Count 3.13 10^6/ul (4.0-5.4); Red Cell Distribution Width 14 % (10.5-15); White Blood Count 6.7 10^3/ul (3.5-10.8)
[2016-10-23 10:30] LABS: Albumin 3.6 g/dL (3.2-5.2); BUN/Creatinine Ratio 15.2 (8-20); C Reactive Protein 21.74 mg/L (< 5.00); Calcium 9.2 mg/dL (8.6-10.3); EGFR African American 70.7 (>60); Globulin 3.4 g/dL (2-4); Magnesium 1.3 mg/dL (1.9-2.7); Potassium 3.7 mmol/L (3.5-5.0); Total Bilirubin 1.4 mg/dL (0.2-1.0)
[2016-10-23] MEDS ORDERED: Acetaminophen TAB* 325 MG PO PRN (11:58)
[2016-10-23] MEDS ORDERED: Docusate CAP* 100 MG PO PRN (12:01)
[2016-10-23] MEDS ORDERED: Magnesium Hydroxide LIQ* 30 ML UDC PO PRN (12:01)
[2016-10-23 13:02] LABS: Urine Bilirubin Negative (Negative); Urine Glucose Negative (Negative); Urine Nitrite Negative (Negative)
[2016-10-23] MEDS: NS 0.9% 1000 ML* 1,000 ML IV SCH (13:32)
[2016-10-23] MEDS: Carvedilol TAB* 6.25 MG PO SCH ×2 (14:01→20:39)
[2016-10-23] MEDS: Magnesium Oxide TAB* 400 MG PO SCH (14:01)
[2016-10-23 15:29] LABS: BUN/Creatinine Ratio 12.5 (8-20); Calcium 8.7 mg/dL (8.6-10.3); EGFR African American 73.3 (>60); Potassium 3.5 mmol/L (3.5-5.0)
--- NOTE | 2016-10-23 16:50 | HP ---
CC: Dr. Campoverde; Dr. Garrison * HISTORY AND PHYSICAL: DATE OF ADMISSION: 10/23/16 PRIMARY CARE PROVIDER: Dr. Garrison. ORTHOPEDIC SURGEON: Dr. Campoverde. CHIEF COMPLAINT: Nausea and vomiting. HISTORY OF PRESENT ILLNESS: October Bambi is a 71-year-old female with history of hypertension and hypothyroidism who had a knee replacement surgery on 10/05/[address] Campoverde. The patient was discharged home postoperatively on 10/07/16 and on that day, her sodium was 125. She continued to take her hydrochlorothiazide as previously prescribed. She stated that ever since her surgery, she had been intermittently , although she stopped taking her narcotics a week after surgery and she had been feeling fine otherwise. She stated that she has small hard bowel movements on a daily basis. For the past couple of days, she had been nauseated with no appetite and slight abdominal cramping. She came into the hospital for evaluation and she was noted to have a sodium of 117. She is going to be admitted with diagnosis of hyponatremia. PAST MEDICAL HISTORY: 1. Hypertension. 2. Chronic kidney disease with creatinine at baseline of 1.2. 3. History of normocytic anemia. 4. Dyslipidemia. 5. Peripheral vascular disease, status post right fem-pop bypass. 6. Hypertension. 7. Status post left total knee replacement on 10/05/16. 8. Status post hysterectomy. 9. History of right foot surgery. MEDICATIONS: At home, include: 1. Coumadin 4 mg daily. 2. Aspirin 81 mg daily. 3. Hydrochlorothiazide 25 mg daily. 4. Coreg 12.5 mg b.i.d. 5. Levothyroxine 75 mcg daily. 6. Gabapentin 300 mg daily. 7. Estradiol 0.5 mg q.p.m. 8. Lipitor 10 mg at bedtime. ALLERGIES: Include LISINOPRIL, MORPHINE, as well as OXYCODONE. FAMILY HISTORY: Mother with a history of dementia, who of "old age." Father also of old age. SOCIAL HISTORY: The patient denies any tobacco or drug use. She uses alcohol rarely. She lives with her , who is her surrogate. REVIEW OF SYSTEMS: Please see history of present illness. Positive for vomiting for the past couple of days. The patient stated that her p.o. intake had been really limited for the past couple of days. She missed her dose of her medications in the morning. She had been taking hydrochlorothiazide on a daily basis after her surgery. She is not taking any narcotic pain killers anymore. She states that occasionally, she would have abdominal cramping. Her last bowel movement was small and hard and was 24 hours ago. She had been ambulating postoperatively without any means of support. All the remaining 14 systems were reviewed with the patient and were otherwise negative. PHYSICAL EXAMINATION GENERAL: The patient is a very pleasant 71-year-old female, who is in no acute distress. Alert, awake, and oriented x3. VITAL SIGNS: Blood pressure 168/59, heart rate of 65 and regular, respiratory rate 12, oxygen saturation 99% on room air, temperature 98.1. HEENT: Head: Atraumatic and normocephalic. Eyes: Pupils are equal and reactive to light and accommodation. Oropharynx clear. Mucosa dry. NECK: Supple. No JVD. No bruits bilaterally RESPIRATORY: Clear to auscultation bilaterally. CARDIOVASCULAR: Regular rate and rhythm, no murmur. ABDOMEN: Soft, nontender. Bowel sounds in all 4 quadrants. EXTREMITIES: There is trace left postoperative knee edema. Pulses +2 bilaterally. There is no clubbing or cyanosis. NEUROLOGIC: Speech is clear. Cranial nerves II through XII grossly intact. Motor strength is 5/5 bilaterally. SKIN: On evaluation of the skin, the patient's left knee midline scar is well healed. The patient has a small ecchymotic area on the posterior aspect of the postoperative left knee. DIAGNOSTIC STUDIES/LAB DATA: Sodium of 117, potassium 3.7, chloride 83, carbon dioxide 25, BUN 15, creatinine 0.99. Liver function tests showed total bilirubin of 1.4. Magnesium was 1.3. Remaining liver function tests were unremarkable. Lipase was 32. Lactic acid was 0.8. CBC: White blood cell count of 6.7, hemoglobin of 10.0, hematocrit of 28, and platelets of 336. Urinalysis is pending at the time of the dictation. Abdominal x-ray, impression: "No clear obstruction noted." The patient's EKG showed normal sinus rhythm with a heart rate of 67 beats per minute with no ST changes. ASSESSMENT AND PLAN: 1. Severe hyponatremia. I suspect the patient's hyponatremia had been progressing every since her discharge. I suspect that she continues to be mildly dehydrated postoperatively due to use of narcotics and being in postoperative pain. At this point, her hydrochlorothiazide is going to be held and the patient is going to be placed on intravenous hydration with normal saline. I will check the patient's basic metabolic panel at approximately 4 hours and then continue rechecking it every 6 hours. To confirm that the patient's hyponatremia is hypovolemic, I will check urine sodium levels as well as serum osmolality. 2. In regards to the patient's postoperative anticoagulation, the patient continues to be on Coumadin which is going to be continued throughout her hospital stay. The patient's INR is still pending at the time of dictation. 3. In regards to the patient's hypertension, it is uncontrolled. The patient did not take her Coreg today, which is going to be restarted. 4. For hypothyroidism, the TSH is going to be checked and Synthroid is going to be continued for the time being at an outpatient dose. 5. For DVT prophylaxis, hopefully the patient's INR is therapeutic and we can just continue her Coumadin on a daily basis. 6. The patient's code status is full. Her surrogate is her , Karsten. TIME SPENT: Approximately 65 minutes was spent on admission of this patient, more than half that time was spent [id number] with the patient during the interview and physical exam. [id number]/[facility] #: [id number] MTDD
[2016-10-23] MEDS ORDERED: Gabapentin CAP(*) 300 MG PO SCH (18:00)
--- NOTE | 2016-10-23 20:07 | ED ---
Virgie Cardona Edward, scribed for Miller Davis MD on 10/23/16 at 0933 . Complex/Multi-Sys Presentation - HPI Summary HPI Summary: 71 y/o female presents to ED c/o nausea and vomiting for the past couple of days. The patient can't keep anything down, including fluids. Denies ABD pain, diarrhea, constipation, fevers, chills, CP, SOB. SHx knee replacement (10/05/16). The patient's reported episodes of confusion during the past couple of days. - History Of Current Complaint Chief Complaint: EDNauseaVomitDiarrh Time Seen by Provider: 10/23/16 09:23 Hx Obtained From: Patient Onset/Duration: Sudden Onset Associated Signs And Symptoms: Positive: Nausea, Vomiting, Other - No fever, chills. Negative: SOB, Chest Pain, Diarrhea, Abdominal Pain - Allergies/Home Medications Allergies/Adverse Reactions: Allergies Allergy/AdvReac Type Severity Reaction Status Date / Time Lisinopril Allergy See Comment Verified 10/05/16 06:22 Morphine and Related AdvReac Dizziness Verified 10/07/16 22:53 Oxycodone AdvReac Dizziness Verified 10/07/16 22:55 Home Medications: Home Medications Aspirin Low Dose CHEW TAB* [Aspirin Low Dose TAB*] 81 mg PO DAILY 10/23/16 [ History Confirmed 10/23/16] Carvedilol TAB* [Coreg TAB*] 12.5 mg PO BID 10/23/16 [History Confirmed 10/23/16 ] Estradiol (NF) 0.5 mg PO QPM 10/23/16 [History Confirmed 10/23/16] Levothyroxine TAB* [Synthroid TAB*] 75 mcg PO QAM 10/23/16 [History Confirmed ] Warfarin TAB(*) [Coumadin TAB(*)] 4 mg PO DAILY 10/23/16 [History Confirmed ] PMH/Surg Hx/FS Hx/Imm Hx Previously Healthy: No Endocrine/Hematology History: Reports: Hx Thyroid Disease - ON MEDS PT. STATES WNL Cardiovascular History: Reports: Hx Coronary Artery Disease, Hx Hypertension, Hx Peripheral Vascular Disease - right leg saphenous vein bypass 2012 Musculoskeletal History: Reports: Hx Arthritis - OSTEO GENERALIZED Sensory History: Reports: Hx Contacts or Glasses - GLASSES FOR READING Denies: Hx Hearing Aid Opthamlomology History: Reports: Hx Contacts or Glasses - GLASSES FOR READING - Surgical History Surgery Procedure, Year, and Place: PARTIAL HYSTERECTOMY . SPAS CHARLES BYPASS 2012 Hx Anesthesia Reactions: No Infectious Disease History: No Infectious Disease History: Reports: Hx Shingles - 10 YEARS AGO SL CASE AROUND LEFT EYE Denies: Traveled Outside the [place] in Last 30 Days - Family History Known Family History: Positive: Other - Dementia Negative: Cardiac Disease, Diabetes - Social History Lives: With Family Alcohol Use: Rare Alcohol Amount: GLASS WINE OCCASIONLLY Substance Use Type: Reports: None Smoking Status (MU): Never Smoked Tobacco Review of Systems Constitutional: Negative Negative: Fever, Chills Eyes: Negative ENT: Negative Cardiovascular: Negative Negative: Chest Pain Respiratory: Negative Negative: Shortness Of Breath Gastrointestinal: Negative Positive: Vomiting, Nausea. Negative: Abdominal Pain, Diarrhea Genitourinary: Negative Musculoskeletal: Negative Skin: Negative Neurological: Negative Psychological: Normal All Other Systems Reviewed And Are Negative: Yes Physical Exam - Summary Physical Exam Summary: VITAL SIGNS:~Reviewed. GENERAL:~ Patient is a well-developed and nourished female who is lying comfortable in the stretcher.~ Patient is not in any acute respiratory distress. HEAD AND FACE:~No signs of trauma.~ No ecchymosis, hematomas or skull depressions. No sinus tenderness. EYES:~PERRLA, EOMI x 2, No injected conjunctiva, no nystagmus. EARS:~Hearing grossly intact. Ear canals and tympanic membranes are within normal limits. MOUTH:~Oropharynx within normal limits. NECK:~Supple, trachea is midline, no adenopathy, no JVD, no carotid bruit, no c- spine tenderness, neck with full ROM. CHEST:~Symmetric, no tenderness at palpation LUNGS:~Clear to auscultation bilaterally. No wheezing or crackles. CVS:~Regular rate and rhythm, S1 and S2 present, no murmurs or gallops appreciated. ABDOMEN:~Soft, non-tender. No signs of distention. No rebound no guarding, and no masses palpated. Bowel sounds are normal. EXTREMITIES:~FROM in all major joints, no edema, no cyanosis or clubbing. Incision in L knee is dry, clean and intact. NEURO:~Alert and oriented x 3. No acute neurological deficits. Speech is normal and follows commands. SKIN:~Dry and warm Triage Information Reviewed: Yes Vital Signs On Initial Exam: Initial Vitals Temp Pulse Resp BP Pulse Ox 98.6 F 64 18 179/64 98 10/23/16 09:05 10/23/16 09:05 10/23/16 09:05 10/23/16 09:05 10/23/16 09:05 Vital Signs Reviewed: Yes - Christina Coma Scale Coma Scale Total: 15 Diagnostics - Vital Signs Vital Signs Temp Pulse Resp BP Pulse Ox 10/23/16 09:19 98.1 F 68 18 175/88 100 10/23/16 09:05 98.6 F 64 18 179/64 98 - Laboratory Lab Results: Lab Results 10/23/16 10/23/16 10/23/16 Range/Units 10:05 10:05 10:05 WBC 6.7 (3.5-10.8) 10^3/ul RBC 3.13 L (4.0-5.4) 10^6/ul Hgb 10.0 L (12.0-16.0) g/dl Hct 28 L (35-47) % MCV 91 (80-97) fL MCH 32 H (27-31) pg MCHC 35 (31-36) g/dl RDW 14 (10.5-15) % Plt Count 336 (150-450) 10^3/ul MPV 7 L (7.4-10.4) um3 Neut % (Auto) 78.5 (38-83) % Lymph % (Auto) 12.4 L (25-47) % Imperial % (Auto) 8.0 (1-9) % Eos % (Auto) 0.6 (0-6) % Baso % (Auto) 0.5 (0-2) % Absolute Neuts (auto) 5.3 (1.5-7.7) 10^3/ul Absolute Lymphs (auto) 0.8 L (1.0-4.8) 10^3/ul Absolute Monos (auto) 0.5 (0-0.8) 10^3/ul Absolute Eos (auto) 0 (0-0.6) 10^3/ul Absolute Basos (auto) 0 (0-0.2) 10^3/ul Absolute Nucleated RBC 0 10^3/ul Nucleated RBC % 0 INR (Anticoag Therapy) (0.89-1.11) Sodium 117 L* (133-145) mmol/L Potassium 3.7 (3.5-5.0) mmol/L Chloride 83 L (101-111) mmol/L Carbon Dioxide 25 (22-32) mmol/L Anion Gap 9 (2-11) mmol/L BUN 15 (6-24) mg/dL Creatinine 0.99 H (0.51-0.95) mg/dL Est GFR ( Amer) 70.7 (>60) Est GFR (Non-Af Amer) 55.0 (>60) BUN/Creatinine Ratio 15.2 (8-20) Glucose 117 H (70-100) mg/dL Lactic Acid 0.8 (0.5-2.0) mmol/L Calcium 9.2 (8.6-10.3) mg/dL Magnesium 1.3 L (1.9-2.7) mg/dL Total Bilirubin 1.40 H (0.2-1.0) mg/dL AST 20 (13-39) U/L ALT 11 (7-52) U/L Alkaline Phosphatase 67 (34-104) U/L C-Reactive Protein 21.74 H (< 5.00) mg/L Total Protein 7.0 (6.4-8.9) g/dL Albumin 3.6 (3.2-5.2) g/dL Globulin 3.4 (2-4) g/dL Albumin/Globulin Ratio 1.1 (1-3) Lipase 32 (11.0-82.0) U/L 10/23/16 Range/Units 10:05 WBC (3.5-10.8) 10^3/ul RBC (4.0-5.4) 10^6/ul Hgb (12.0-16.0) g/dl Hct (35-47) % MCV (80-97) fL MCH (27-31) pg MCHC (31-36) g/dl RDW (10.5-15) % Plt Count (150-450) 10^3/ul MPV (7.4-10.4) um3 Neut % (Auto) (38-83) % Lymph % (Auto) (25-47) % Imperial % (Auto) (1-9) % Eos % (Auto) (0-6) % Baso % (Auto) (0-2) % Absolute Neuts (auto) (1.5-7.7) 10^3/ul Absolute Lymphs (auto) (1.0-4.8) 10^3/ul Absolute Monos (auto) (0-0.8) 10^3/ul Absolute Eos (auto) (0-0.6) 10^3/ul Absolute Basos (auto) (0-0.2) 10^3/ul Absolute Nucleated RBC 10^3/ul Nucleated RBC % INR (Anticoag Therapy) 2.09 H (0.89-1.11) Sodium (133-145) mmol/L Potassium (3.5-5.0) mmol/L Chloride (101-111) mmol/L Carbon Dioxide (22-32) mmol/L Anion Gap (2-11) mmol/L BUN (6-24) mg/dL Creatinine (0.51-0.95) mg/dL Est GFR ( Amer) (>60) Est GFR (Non-Af Amer) (>60) BUN/Creatinine Ratio (8-20) Glucose (70-100) mg/dL Lactic Acid (0.5-2.0) mmol/L Calcium (8.6-10.3) mg/dL Magnesium (1.9-2.7) mg/dL Total Bilirubin (0.2-1.0) mg/dL AST (13-39) U/L ALT (7-52) U/L Alkaline Phosphatase (34-104) U/L C-Reactive Protein (< 5.00) mg/L Total Protein (6.4-8.9) g/dL Albumin (3.2-5.2) g/dL Globulin (2-4) g/dL Albumin/Globulin Ratio (1-3) Lipase (11.0-82.0) U/L Result Diagrams: 10/23/16 10:05 10/23/16 14:12 Lab Statement: Any lab studies that have been ordered have been reviewed, and results considered in the medical decision making process. - Radiology ABD XRAY Xray Interpretation: No Acute Changes - No free air or obstruction is noted Radiology Interpretation Completed By: Radiologist - EKG 1 EKG Interpretation: 10:43 - Sinus Rhythm @ [address] elevations Complex Multi-Symp Course/Dx Assessment/Plan: 71 y/o female presents to ED c/o nausea and vomiting for the past couple of days. The patient can't keep anything down, including fluids. Denies ABD pain, diarrhea, constipation, fevers, chills, CP, SOB. SHx knee replacement (10/05/16). The patient's reported episodes of confusion during the past couple of days. Test results show slight anemia, sodium 117, glucose 117, CRP 21.7. UA (+) ketones (-) UTI. I believe her sx are secondary to hyponatremia since the pt has slight confusion and N/V. After the pt was hydrated and given Zofran the patient states she feels much better. I discussed the case with Dr. Alcocer, who accepted the pt for admission. The patient is hemodynamically stable, A&Ox3. - Diagnoses Provider Diagnoses: Hyponatremia, Nausea & vomiting, Confusion - Physician Notifications Discussed Care Of Patient With: Shereen Alcocer Time Discussed With Above Provider: 11:50 Instructed by Provider To: Admit As Inpatient Discharge - Discharge Plan Condition: Stable Disposition: ADMITTED TO [facility] The documentation as recorded by the Virgie romero Edward accurately reflects the service I personally performed and the decisions made by me, Miller Davis MD.
[2016-10-23] MEDS ORDERED: Atorvastatin* 10 MG TAB PO SCH (21:00)
[2016-10-24] MEDS: NS 0.9% 1000 ML* 1,000 ML IV SCH ×2 (00:24→07:41)
[2016-10-24 05:42] LABS: Magnesium 2.4 mg/dL (1.9-2.7)
[2016-10-24] MEDS ORDERED: Levothyroxine TAB* 75 MCG TAB PO SCH (06:00)
[2016-10-24 06:30] LABS: TSH (Thyroid Stimulating Horm) 2.26 mcIU/mL (0.34-5.60)
[2016-10-24 07:32] VITALS: BP 159/53
[2016-10-24] MEDS: Magnesium Oxide TAB* 400 MG PO SCH (07:37)
[2016-10-24] MEDS: Carvedilol TAB* 6.25 MG PO SCH (07:37)
[2016-10-24] MEDS ORDERED: Aspirin Low Dose CHEW TAB* 81 MG PO SCH (09:00)
[2016-10-24 09:03] LABS: BUN/Creatinine Ratio 10.5 (8-20); Calcium 8.4 mg/dL (8.6-10.3); EGFR African American 74.2 (>60); EGFR Non-African American 57.7 (>60); Potassium 3.6 mmol/L (3.5-5.0)
[2016-10-24] MEDS ORDERED: Warfarin TAB(*) 2 MG PO SCH (17:00)
[2016-10-24] MEDS ORDERED: Warfarin TAB(*) 5 MG PO SCH (17:00)
--- NOTE | 2016-10-25 06:36 | DS ---
CC: Dr. Campoverde; Dr. Garrison. * DISCHARGE SUMMARY: DATE OF ADMISSION: 10/23/16. DATE OF DISCHARGE: 10/24/16. PRIMARY CARE PROVIDER: Dr. Garrison. ORTHOPEDIC SURGEON: Dr. Campoverde. DISCHARGE DIAGNOSIS: Hyponatremia due to dehydration and hydrochlorothiazide use. SECONDARY DIAGNOSES: 1. Hypertension. 2. Chronic kidney disease, stage 2 to 3. 3. History of normocytic anemia. 4. Dyslipidemia. 5. Peripheral vascular disease, status post fem-pop bypass. 6. Status post left total knee replacement on 10/05/16. 7. Status post hysterectomy. 8. History of right foot surgery. MEDICATIONS AT DISCHARGE: Include: 1. Coumadin at an increased dose of 5 mg daily. 2. Synthroid 75 mcg daily. 3. Neurontin 300 mg daily. 4. Estradiol 0.5 mg daily. 5. Coreg 12.5 mg b.i.d. 6. Lipitor 10 mg at bedtime. 7. Aspirin 81 mg daily. Medication that was discontinued: Hydrochlorothiazide. LABORATORY DATA AND STUDIES PERFORMED DURING THE HOSPITAL STAY: Included: The patient's INR on the day of admission on 10/23/16 was 2.09. On 10/24/16 was 1.56. The patient was requested to check her INR in 3 days after her Coumadin dose was increased from 4 to 5 mg daily. On 10/24/16, sodium of 126, potassium of 3.6, chloride 95, carbon dioxide 23, BUN 10, creatinine 0.95. TSH was 2.26. Urinalysis showed trace of ketones and urobilinogen positive. Urine random sodium was 87. HOSPITALIZATION COURSE: Mini Lacy is 71-year-old female who presented to the hospital complaining of nausea and vomiting. She was noted to have sodium of 117. She also stated that she was somewhat constipated. She has a history of recent left total knee replacement on 10/05/16 and on the day of discharge, she had sodium of 125. She continues to use hydrochlorothiazide postoperatively. The patient was admitted to the hospital and placed on intravenous hydration since she appears to be dehydrated. Also her hydrochlorothiazide was discontinued. After her electrolytes have somewhat normalized she felt much better. Her nausea and vomiting resolved and she ate a full breakfast. She had a bowel movement and she felt much better. She requested to go home today, although her sodium is still somewhat low. She is going to be discharged to follow up with her primary care provider in approximately four to seven days. The patient is also recommended to have her basic metabolic panel drawn in seven days from discharge to check on her hyponatremia. Her hydrochlorothiazide will be discontinued at discharge. Physical examination at the time of discharge was unchanged from admission. [id number]/[facility] #: [id number] MTDShira
== END 2016-10-24 10:45 | disposition home or self-care (01) ==
LOC: ED 09:03 → MED 11:54 → INTOOBSV 11:54
PROVIDERS: ADMIT Internal Medicine; ATTEND Internal Medicine
DX: E86.0 Dehydration (principal); E87.1 Hypo-osmolality and hyponatremia; I12.9 Hypertensive chronic kidney disease with stage 1 through stage 4 chronic kidney disease, or unspecified chronic kidney disease; N18.2 Chronic kidney disease, stage 2 (mild); E78.5 Hyperlipidemia, unspecified; I25.10 Atherosclerotic heart disease of native coronary artery without angina pectoris; M15.9 Polyosteoarthritis, unspecified; T50.2X5A Adverse effect of carbonic-anhydrase inhibitors, benzothiadiazides and other diuretics, initial encounter; E03.9 Hypothyroidism, unspecified; I73.9 Peripheral vascular disease, unspecified; Z96.652 Presence of left artificial knee joint; Z79.01 Long term (current) use of anticoagulants; Z79.82 Long term (current) use of aspirin
CPT/HCPCS: 36415; 74020; 80048; 80053; 81003; 83605; 83690; 83735; 83930; 83935; 84300; 84443; 85025; 85610; 86140; 93005; 96374; 99283; A9270-GY; G0378; J2405; J3475